=== PATIENT | female | born 1980 | race Caucasian/White ===

== ENCOUNTER 2018-01-29 06:04 | Outpatient (CLI) | payer OTHER ==
[~2018-01-29] VITALS: Ht 165.1 cm; Wt 78.6 kg
[~2018-01-29 06:04] MED LIST: AMOXICILLIN/CLA1 TA1 PO; MOTRIN 800800 MG/TAB PO; PERCOCET 325 MG1 TA2 PO; PRENATAL; PROTONIX 40MG T40 MG PO
[2018-01-29 06:22] VITALS: BP 124/74; PULSE 91; TEMP 98.2
[2018-01-29 06:45] VITALS: BP 124/74; PULSE 91; TEMP 98.2
[2018-01-29 07:15] VITALS: BP 121/70; PULSE 82
[2018-01-29 07:17] LABS: COLLECTION METHOD CATHETER
[2018-01-29 07:21] LABS: BASO % 0.3 % (0.0-2.0); GRAN # 12.5 (1.4-6.5); GRAN % 79.8 % (42.2-75.2); HEMATOCRIT 30.7 % (37.0-47.0); HEMOGLOBIN 10.6 g/dl (12.5-16.0); LYMPH % 12.6 % (20.0-51.0); MEAN CELL VOLUME 90 fl (80.0-100.0); MEAN CORPUSCULAR HEMOGLOBIN 31 pg (27.0-31.0); MEAN CORPUSCULAR HGB CONC 35 g/dl (33.0-37.0); MEAN PLATELET VOLUME 9.7 fl (7.4-10.4); MONO # 0.9 (0.1-0.6); PLATELET COUNT 275 K/mm3 (130-400); REDCELL DISTRIBUTION WIDTH-CV 14.6 % (11.5-14.5)
[2018-01-29 07:25] LABS: MUCOUS Present /lpf; PH 6 (5-8); SQUAMOUS EPITHELIAL 0-2 /hpf; URINE APPEARANCE Clear; URINE BACTERIA None Seen /hpf; URINE BILIRUBIN Negative (NEGATIVE); URINE BLOOD 1+ (NEGATIVE); URINE COLOR Straw; URINE GLUCOSE Negative (NEGATIVE); URINE KETONE Negative (NEGATIVE); URINE LEUKOCYTE ESTERASE Negative (NEGATIVE); URINE NITRATE Negative (NEGATIVE); URINE PROTEIN(semi-quant) Negative (NEGATIVE); URINE RBC 0-2 /hpf; URINE UROBILINOGEN Negative (NEGATIVE)
[2018-01-29 08:15] VITALS: BP 124/73; PULSE 89
[2018-01-29 08:45] VITALS: BP 124/73; PULSE 89
[2018-01-29 10:30] VITALS: BP 111/66; PULSE 86; TEMP 98.2
== END 2018-01-29 11:15 | disposition home or self-care (01) ==
LOC: LDRO 06:04 → LDR 06:20 → LDRO 11:15
PROVIDERS: Obstetrics & Gynecology
DX: O99.89 Other specified diseases and conditions complicating pregnancy, childbirth and the puerperium (principal); M54.9 Dorsalgia, unspecified; R31.9 Hematuria, unspecified; Z3A.32 32 weeks gestation of pregnancy
CPT/HCPCS: OP; J7120; Q9967